=== PATIENT | male | born 1985 | race African-American/Black ===

== ENCOUNTER 2020-03-07 16:26 | Emergency (ER) | payer MEDICARE, OTHER ==
[~2020-03-07] VITALS: Ht 175.3 cm; Wt 90.7 kg
[2020-03-07 16:27] VITALS: BP 112/66
[2020-03-07] MEDS ORDERED: IBUPROFEN 600 MG TABLET PO ONE ×2 (17:46→18:00)
== END 2020-03-07 17:54 | disposition home or self-care (01) ==
LOC: ER 16:27
DX: M25.571 Pain in right ankle and joints of right foot (principal); G80.9 Cerebral palsy, unspecified; Z98.890 Other specified postprocedural states
CPT/HCPCS: 73610-TC